=== PATIENT | female | born 1990 | race Caucasian/White ===

== ENCOUNTER 2016-07-29 20:16 | Emergency (ER) | payer OTHER | END 2016-07-29 20:57 | disposition home or self-care (01) | LOC: ER 20:16 | DX: S80.01XA Contusion of right knee, initial encounter (principal); V49.9XXA Car occupant (driver) (passenger) injured in unspecified traffic accident, initial encounter ==

== ENCOUNTER 2016-10-07 17:53 | Emergency (ER) | payer OTHER | END 2016-10-07 18:37 | disposition home or self-care (01) | LOC: ER 17:53 | DX: S39.012A Strain of muscle, fascia and tendon of lower back, initial encounter (principal); Z87.440 Personal history of urinary (tract) infections; V89.2XXA Person injured in unspecified motor-vehicle accident, traffic, initial encounter ==